=== PATIENT | female | born 1990 | race Caucasian/White ===

== ENCOUNTER 2023-12-17 22:43 | Emergency (ER) | payer OTHER, SELFPAY ==
[2023-12-17 22:50] VITALS: BP 115/68; PULSE 77; RESP 18; TEMP 37.1; O2SAT 100; BMI 32.9
--- NOTE | 2023-12-17 23:10 | ED.HA1 ---
HPI - Headache General Chief Complaint: Headache Stated Complaint: Headache Covid+ 12/03/23 Time Seen by Provider: 12/17/23 22:48 Source: patient Mode of arrival: walk-in Limitations: no limitations History of Present Illness HPI Narrative: Patient with history of intermittent headache presents with a headache that began a few weeks ago just before the patient tested positive for COVID. She described a heaviness with worsening when she moved her head that began around December 01. On December 03 she went to the urgent care and tested positive for COVID. She said that she was outside of the window to receive antiviral so she was given a prescription for Zofran, which which she said initially helped her headache but never made it completely go away. The patient went back to the urgent care about a week ago and was diagnosed with labyrinthitis after she had developed some dizziness that was worse with positional head change. She was prescribed daily prednisone which she has been taking and also a as needed prescription for meclizine, which she has only taken a couple of. She denied any recent fever or chills. She denied any vomiting or diarrhea. She denied any URI symptoms. She denied any injury to the head or neck. No meds taken this afternoon or evening for this complaint Related Data Home Medications Medication Instructions Recorded Confirmed aewtkqhzdy-tibkndcnjvqms-wiivrmxu 1 cap PO Q8H PRN headache 12/17/23 12/17/23 50 mg-300 mg-40 mg capsule meclizine 25 mg tablet 25 mg PO DAILY 12/17/23 12/17/23 Allergies Allergy/AdvReac Type Severity Reaction Status Date / Time No Known Drug Allergies Allergy Ver[facility]17[facility]23 22[facility] Social History Smoking status: Former smoker Exam Narrative Exam Narrative: Nurses notes and vital signs reviewed and patient is not hypoxic. Afebrile General: Well-appearing and in no apparent distress. Skin: Warm, dry, no pallor noted. No rash. Head: Normocephalic, atraumatic. Neck: Supple, non-tender. No meningismus. No cervical lymphadenopathy. Eye: Pupils are equal, round and EOMI. No scleral icterus. No nystagmus. Ears, Nose, Mouth, and Throat: TM are clear, no posterior oropharynx erythema or nasal mucosal hypertrophy, uvula is mid-line Oral mucosa is moist Cardiovascular: Regular Rate and Rhythm without murmur, gallop or rub. Respiratory: No accessory muscle use or respiratory distress. Lungs are clear to auscultation, no wheezing, rales or rhonchi Musculoskeletal: normal ROM GI: Abdomen is soft, non-distended. Normal bowel sounds. No tenderness to palpation. No rebound, guarding, or rigidity noted. Neurological: A&O x4. No cranial nerve dysfunction observed. No truncal ataxia. Moves all extremities. Sensation intact. Psychiatric: Cooperative and interactive. Normal mood and affect. Constitutional Vital Signs, click to edit/add: Last Vital Signs Temp 98.7 F 12/17/23 22:50 Pulse 77 12/17/23 22:50 Resp 18 12/17/23 22:50 BP 115/68 12/17/23 22:50 Pulse Ox 100 12/17/23 22:50 O2 Del Method Room Air 12/17/23 22:50 Course Vital Signs Vital signs: Vital Signs Temperature 98.7 F 12/17/23 22:50 Pulse Rate 77 12/17/23 22:50 Respiratory Rate 18 12/17/23 22:50 Blood Pressure 115/68 12/17/23 22:50 Pulse Oximetry 100 12/17/23 22:50 Oxygen Delivery Method Room Air 12/17/23 22:50 Temperature 98.7 F 12/17/23 22:50 Pulse Rate 77 12/17/23 22:50 Respiratory Rate 18 12/17/23 22:50 Blood Pressure 115/68 12/17/23 22:50 Pulse Oximetry 100 12/17/23 22:50 Oxygen Delivery Method Room Air 12/17/23 22:50 MDM - Headache MDM Narrative Medical decision making narrative: The patient does not have any neurological deficit on examination. HEENT exam is unremarkable and I do not see any evidence of EAC occlusion. No need for imaging at this time. Peripheral IV established. The patient ordered to receive normal saline IV fluid, IV Toradol, IV Zofran and IV Benadryl. Headache decreased from 8/10 to 6/10 on recheck. She was ordered to receive IV Solumerol, IV magnesium and IV phenergan. Patient's pain further decreased. She was discharged home with recommendation to see her PCP for follow up. ED return if she worsens. Discharge Plan Discharge Chief Complaint: Headache Clinical Impression: Headache Patient Disposition: Home, Self-Care Time of Disposition Decision: 01:00 Prescriptions / Home Meds: No Action djtilqqywp-tlkoyhuzfoaak-flpv 50-300-40 mg capsule 1 cap PO Q8H PRN (Reason: headache) meclizine 25 mg tablet 25 mg PO DAILY Instructions: Acute Headache (ED) Stand Alone Forms: Portal Instructions Referrals: Physician,Non-Staff, MD [Primary Care Provider] - 1 week
[2023-12-17] MEDS: 0.9 % SODIUM CHLORIDE 1,000 ML 1000 ML IV (23:41)
[2023-12-17] MEDS: DIPHENHYDRAMINE HCL 50 MG/ML (1ML) VIAL 25 MG IV (23:42)
[2023-12-17] MEDS: ONDANSETRON PF 4 MG/2 ML VIAL IV (23:42)
[2023-12-17] MEDS: KETOROLAC TROMETHAMINE 30 MG/ML VIAL IVP (23:42)
--- NOTE | 2023-12-17 23:52 | PC.NURSE ---
Patient has had headache since 12/01. Was prescribed migraine medication, but has not taken it as prescribed and states that it does not work. She has not taken any Tylenol or Ibuprofen for her headache either. She was also prescribed Meclizine and has not taken that as prescribed either. She was at the [place] ED just prior to coming here toncorey, but left after being in their waiting room for too long. She was Covid positive on 12/03 and did not have any sx apart from the headache.
[2023-12-18] MEDS: PROMETHAZINE HCL 12.5 MG in 0.9 % SODIUM CHLORIDE 50 ML 204 MG IV (00:53)
[2023-12-18] MEDS: MAGNESIUM SULFATE/D5W 1 GM/100 ML PIGGYBACK IV (00:53)
[2023-12-18] MEDS: METHYLPREDNISOLONE SOD SUCC PF 125 MG/2 ML VIAL IVP (00:54)
== END 2023-12-18 01:50 | disposition home or self-care (01) ==
PROVIDERS: Emergency Provider Emergency Medicine
DX: R51.9 Headache, unspecified (principal); Z87.891 Personal history of nicotine dependence; Z86.16 Personal history of COVID-19
CPT/HCPCS: 96365; 96368; 96375; 99284; J1200; J1885; J2250; J2405; J2930; J3475

== ENCOUNTER 2023-12-24 17:47 | Emergency (ER) | payer OTHER, SELFPAY ==
[2023-12-24] VITALS (15 sets, daily range): BP systolic 101–127; BP diastolic 59–83; PULSE 60–88; RESP 15–21; TEMP 37.1; O2SAT 94–100; BMI 33.8
--- OUTSIDE RECORDS SUMMARY | 2023-12-24 18:06 | XMS_ITS | CCD ---
Author Name Unknown Address [address] [facility] [address] [place], [place] [id number] Organization [facility] Care Team Providers Care Core Maker Helper Name Role Phone DR CHRISTIANO BRAVO Primary Care Unavailable DR DWIGHT TOBAR Attending Unavailable DR DWIGHT TOBAR Consulting Unavailable DR DWIGHT TOBAR Admitting Unavailable Bess Stoddard Unavailable Medications Current Medications Medication Drug Class(es) Dates Sig (Normalized) Sig (Original) amoxicillin 875 mg oral tablet (1 source) Penicillin-class Antibacterial Start: 11-08-2022 take 1 tablet by mouth three times daily Amoxicillin 875 MG 1 tablet Orally 3 times per day for 7 days Oct, Active dextromethorphan hydrobromide 1.5 mg/ml / pyrilamine maleate 1.5 mg/ml oral solution (1 source) Uncompetitive T-ltxxod-O-aspartate Receptor Antagonist, Sigma-1 Agonist Start: 11-08-2022 Walker DM 7.5-7.5 MG/5ML 10 ml Orally every 6-8 hours as needed for 8 days Oct, Active fluticasone propionate 0.05 mg/actuat metered dose nasal spray (1 source) Corticosteroid Start: 11-08-2022 take 1 spray(s) nasal route once daily Fluticasone Propionate 50 MCG/ACT 1 spray in each nostril Nasally Once a day for 30 day(s) Oct, Active Problems Problem Classification Problem Date Documented Date Episodic/Chronic Immunizations and screening for infectious disease (2 sources) Encounter for screening for human papillomavirus (HPV); Translations: [Contact with and (suspected) exposure to other viral communicable diseases] Onset: 01-26-2022 Episodic Other screening for suspected conditions (not mental disorders or infectious disease) (4 sources) Encounter for screening for malignant neoplasm of cervix; Translations: [ENC SCREENING MALIG NEOPLASM CERV] Onset: 01-25-2022 Episodic Other upper respiratory infections (1 source) Acute pharyngitis, unspecified Episodic Otitis media and related conditions (1 source) Otitis media, unspecified, bilateral Episodic Results Test Name Value Interpretation Reference Range Facil ity COVID + FLU Quick Testingon 11-08-2022 SARS-CoV-2 (COVID-19) RNA VIVEK+probe Ql (Unsp spec) Negative [facility] Other COVID + FLU Quick Testing Negative [facility] Other Quick Strepon 11-08-2022 S. pyogenes Org specific cx Ql (Throat) Negative [facility] Other Quick Strep [facility] Other PAP ACOG PANEL 2: 30 to 65on 02-08-2022 . . Normal [facility] Comment on above: Result Comment: Performed at: WB Performed By: #### [id number] #### [facility] [address] [address] [address] Yves Diop Age Gdln ACOG Testing 30-65 Normal [facility] Comment on above: Performed By: #### [id number] #### [facility] [address] [address] [address] Yves Diop DIAGNOSIS: Comment Normal [facility] Comment on above: Result Comment: NEGATIVE FOR INTRAEPITHE LIAL LESION OR MALIGNANCY. Performed at: WB Performed By: #### [id number] #### [facility] [address] [address] [address] Yves Diop HPV Aptima Negative Normal Negative [facility] Comment on above: Result Comment: This nucleic acid amplif ication test detects fourteen high-risk HPV types (16,18,31,33,35,39,45,51,52,56,58,59,66,68) without differentiation. Performed at: =G Performed By: #### [id number] #### [facility] [address] [address] [address] Yves Diop Methodology: Comment [facility] Comment on above: Result Comment: This liquid based ThinPr ep(R) pap test was screened with the use of an image guided system. Performed at: WB Performed By: #### [id number] #### [facility] [address] [place] [address] Dr. Yves Diop Note: Comment [facility] Comment on above: Result Comment: The Pap smear is a scree josé miguel test designed to aid in the detection of premalignant and malignant conditions of the uterine cervix. It is not a diagnostic procedure and should not be used as the sole means of detecting cervical cancer. Both false-positive and false-negative reports do occur. . Performed at: WB Performed By: #### [id number] #### [facility] [address] [place] [address] Dr. Yves Diop Performed by: Comment Normal [facility] Comment on above: Result Comment: Charo Robert chnologliya (ASCP) Performed at: WB Performed By: #### [id number] #### [facility] [address] [place] [address] Dr. Yves Diop Specimen adequacy: Comment [facility] Comment on above: Result Comment: Satisfactory for evaluat ion. Endocervical and/or squamous metaplastic cells (endocervical component) are present. Performed at: WB Performed By: #### [id number] #### [facility] [address] [place] [address] Dr. Yves Diop PAP ACOG PANEL 2: 30 to 65on 01-31-2022 . . Normal [facility] Comment on above: Result Comment: Performed at: WB Performed By: #### [id number] #### [facility] [address] [place] [address] Dr. Yves Diop Age Gdln ACOG Testing 30-65 [facility] Comment on above: Performed By: #### [id number] #### [facility] [address] [place] [address] Dr. Yves Diop DIAGNOSIS: Comment [facility] Comment on above: Result Comment: NEGATIVE FOR INTRAEPITHE LIAL LESION OR MALIGNANCY. Performed at: WB Performed By: #### [id number] #### [facility] [address] [place] [address] Dr. Yves Diop HPV Aptima Negative Normal Negative [facility] Comment on above: Result Comment: This nucleic acid amplif ication test detects fourteen high-risk HPV types (16,18,31,33,35,39,45,51,52,56,58,59,66,68) without differentiation. Performed at: =G Performed By: #### [id number] #### [facility] [address] [place] [address] Dr. Yves Diop Methodology: Comment Normal [facility] Comment on above: Result Comment: This liquid based ThinPr ep(R) pap test was screened with the use of an image guided system. Performed at: WB Performed By: #### [id number] #### [facility] [address] [place] [address] Dr. Yves Diop Note: Comment Normal [facility] Comment on above: Result Comment: The Pap smear is a scree josé miguel test designed to aid in the detection of premalignant and malignant conditions of the uterine cervix. It is not a diagnostic procedure and should not be used as the sole means of detecting cervical cancer. Both false-positive and false-negative reports do occur. . Performed at: WB Performed By: #### [id number] #### [facility] [address] [place] [address] Dr. Yves Diop Performed by: Comment Normal [facility] Comment on above: Result Comment: Charo Robert chnologliya (ASCP) Performed at: WB Performed By: #### [id number] #### [facility] [address] [place] [address] Dr. Yves Diop Specimen adequacy: Comment Normal [facility] Comment on above: Result Comment: Satisfactory for evaluat ion. Endocervical and/or squamous metaplastic cells (endocervical component) are present. Performed at: WB Performed By: #### [id number] #### [facility] [address] [place] [address] Dr. Yves Diop Vital Signs Date Time Vital Sign Value Performing Clinician Facility 11-08-2022 10:00-0500 Body height 157.48 cm Bess Arlyn Other [facility] Other 11-08-2022 10:00-0500 Body mass index (BMI) [Ratio] 36.58 kg/m2 Bess Stoddard Other [facility] Other 11-08-2022 10:00-0500 Body temperature 98 [degF] Bess Kwokault Other [facility] Other 11-08-2022 10:00-0500 Body weight 90.72 kg Bess Kwokault Other [facility] Other 11-08-2022 10:00-0500 Respiratory rate 18 /min Bess Arlyn Other [facility] Other 11-08-2022 10:00-0500 SaO2% (BldA) [Mass fraction] 99 % Bess Kwokault Other [facility] Other Encounters Encounter Date Encounter Type Care Provider Facility Start: 11-08-2022 End: 11-08-2022 ambulatory Bess Stoddard Other [facility] Other Start: 11-08-2022 Office outpatient ne w 20 minutes Bess Stoddard [facility] Start: 01-25-2022 End: 01-25-[address] CHRISTIANO BRAVO Facility: Payers Date Payer Category Payer Unknown [id number] 1959 Unknown [id number] [employer] [facility] [id number] Social History Date Type Detail Facility Sex Assigned At [facility] Other Evaluation note 11-08-2022 Note Date & Type Note Facility 11-08-2022 Evaluation note Encounter Date Diagnosis Assessment Notes Oct, Contact with and (suspected) exposure to other viral communicable diseases (ICD-10 - Z20.828) Oct, Bilateral acute otitis media (ICD-10 - H66.93) Ear infections are often a secondary infection caused from an URI, the flu or allergies. Take medication as directed. Complete all doses, even if you feel better. Tylenol or ibuprofen can help with pain. Warm pack to area for comfort helps as well. Follow up with primary care provider if no improvement of symptoms. Oct, Sore throat (ICD-10 - J02.9) [place] [facility] Other History general Narrative - Reported Note Date & Type Note Facility History general Narrative - Reported Type Surgical History X 2 Surgical History tubal ligation [facility] Other Summary Purpose Family History No Family History Records Found Advance Directives No Advanced Directives Records Found Additional Source Comments INFORMATION SOURCE (unrecogn ized section and content) DATE CREATED AUTHOR 02/09/2022 [facility] REASON FOR VISIT (unrecogniz ed section and content) headache/head pressure, sore throat, runny nose FOR RECORDS PERTAINING TO PATIENTS WHO ARE OR HAVE BEEN ENROLLED IN A CHEMICAL DEPENDENCY/SUBSTANCEABUSE PROGRAM, SOME INFORMATION MAY BE OMITTED. This clinical summary was aggregated from multiple sources. Caution should be exercised in using it in the provision of clinical care. This summary normalizes information from multiple sources, and as a consequence, information in this document may materially change the coding, format and clinical context of patient data. In addition, data may be omitted in some cases. CLINICAL DECISIONS SHOULD BE BASED ON THE PRIMARY CLINICAL RECORDS. [employer] provides no warranty or guarantee of the accuracy or completeness of information in this document.
--- NOTE | 2023-12-24 18:13 | ECG_ITS ---
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
--- NOTE | 2023-12-24 18:13 | ED.GENADUL1 ---
HPI - General Adult General Chief complaint: Headache Stated complaint: Headache, Syncope Time Seen by Provider: 12/24/23 17:53 Source: patient Mode of arrival: walk-in Limitations: no limitations History of Present Illness HPI narrative: Patient is a 32-year-old female who presents to the emergency department for continued headache. Patient was seen in this emergency department last week. She developed headaches at the beginning of this month, she then developed COVID And her headaches were thought to be due to COVID infection. She was also seen at urgent care and diagnosed with labyrinthitis. When she was seen in this emergency room last week, she was treated for headache with IV fluids and medications. She saw her PCP this past week who gave her a nasal spray and medication for home to help with the headaches. She states she had improvement until the last 3 days when she had a return of increasing headache located over the bilateral occiput. She states today she had a syncopal episode, she called her PCP to be reevaluated and was instructed to come to the ER. She has no loss of vision or double vision. She has no peripheral paresthesias or neck pain. She has not had any fevers, chills, cough, hemoptysis, chest pain, shortness of breath. She has not had any abdominal pain, she is not on control, she has no concern for . Related Data Home Medications Medication Instructions Recorded Confirmed [id number] 1 cap PO Q8H PRN headache 12/17/23 12/24/23 50 mg-300 mg-40 mg capsule meclizine 25 mg tablet 12.5 mg PO TID 12/17/23 12/24/23 metaxalone 800 mg tablet 800 mg PO TID PRN headaches 12/24/23 12/24/23 Previous Rx's Medication Instructions Recorded diphenhydramine HCl 25 mg capsule 25 mg PO Q8H PRN headache #20 caps 12/24/23 (Benadryl) ketorolac 10 mg tablet 10 mg PO TID PRN pain #10 tabs 12/24/23 methocarbamol 750 mg tablet 750 mg PO TID PRN pain #20 tabs 12/24/23 metoclopramide HCl 10 mg tablet 10 mg PO Q6H PRN nausea and 12/24/23 (Reglan) vomiting #12 tabs Allergies Allergy/AdvReac Type Severity Reaction Status Date / Time No Known Drug Allergies Allergy Verified 12/24/23 17:53 Review of Systems ROS Constitutional Denies: fever or chills Eyes Reports: blurry vision Ears, nose, mouth, and throat Denies: throat pain or nasal congestion Cardiovascular Denies: chest pain or palpitations Respiratory Denies: shortness of breath, cough or coughing up blood Gastrointestinal Reports: nausea; Denies: vomiting or diarrhea Genitourinary Denies: painful urination Musculoskeletal Denies: back pain, neck pain, extremity pain or extremity swelling Integumentary/Breast Denies: rash Neurological Reports: headache and dizziness; Denies: numbness in extremities or weakness in extremities Endocrine Denies: excessive urination Hematologic/Lymphatic Denies: easy bruising or easy bleeding PFSH PFSH Social History Smoking status: Former smoker Exam Narrative Exam Narrative: Gen.: Awake, alert, in no distress Head: Normocephalic, Mild tenderness of the occiput. No Cal[place]xto sign or raccoon eyes ENT: Moist mucous membranes, C-spine nontender with full range of motion Respiratory: No respiratory distress, lungs clear bilaterally Cardio: Regular rate and rhythm Gastrointestinal: Abdomen is soft, nondistended and nontender to palpation Extremities: Moves extremities equally, No edema Psych: Normal mood and affect Neuro: No focal neuro deficit Skin: Warm, dry, intact Constitutional Vital Signs, click to edit/add: Last Vital Signs Temp 98.7 F 12/24/23 17:53 Pulse 73 12/24/23 20:50 Resp 21 12/24/23 20:50 BP 109/63 12/24/23 20:30 Pulse Ox 95 12/24/23 20:50 O2 Del Method Room Air 12/24/23 17:53 Course Vital Signs Vital signs: Vital Signs Temperature 98.7 F 12/24/23 17:53 Pulse Rate 88 12/24/23 17:53 Respiratory Rate 18 12/24/23 17:53 Blood Pressure 127/83 12/24/23 17:53 Pulse Oximetry 97 12/24/23 17:53 Oxygen Delivery Method Room Air 12/24/23 17:53 Temperature 98.7 F 12/24/23 17:53 Pulse Rate 73 12/24/23 20:50 Respiratory Rate 21 12/24/23 20:50 Blood Pressure 109/63 12/24/23 20:30 Pulse Oximetry 95 12/24/23 20:50 Oxygen Delivery Method Room Air 12/24/23 17:53 Medical Decision Making MDM Narrative Medical decision making narrative: PERC score of 0. Patient with no tachycardia, hypoxia. She has no history of DVT or PE, she takes no control or exogenous estrogen. She has not had any unilateral extremity swelling or hemoptysis. CT of the brain, lab studies reviewed and noted. These are grossly unremarkable. Patient is discharged to follow-up with neurology. She was treated with IV fluids and medications in the ER. She is resting comfortably on reevaluation with stable vital signs. She has no altered mental status. Follow-up with PCP and neurology and return to the ER if symptoms change or worsen Medical Records Medical records reviewed: Yes I reviewed the patient's medical records Lab Data Lab results reviewed: Yes I reviewed the patient's lab results Labs: Lab Results 12/24/23 12/24/23 Range/Units 18:18 19:30 WBC 10.5 (4.0-11.0) 10^3/uL RBC 4.22 (4.20-5.40) 10^6/uL Hgb 11.9 L (12.0-16.0) g/dL Hct 37.0 (36.0-48.0) % MCV 87.7 (81.0-99.0) fL MCH 28.2 (26.7-34.0) pg MCHC 32.2 (29.9-35.2) g/dL RDW 13.7 (11.0-15.0) % Plt Count 342 (150-450) 10^3/uL MPV 10.5 (9.5-13.5) fL Neut % (Auto) 82.2 H (43.0-75.0) % Lymph % (Auto) 10.3 L (20.5-60.0) % [place] % (Auto) 6.5 (1.7-12.0) % Eos % (Auto) 0.1 L (0.9-7.0) % Baso % (Auto) 0.3 (0.2-2.0) % Neut # (Auto) 8.7 H (1.4-6.5) 10^3/uL Lymph # (Auto) 1.1 L (1.2-3.8) 10^3/uL [place] # (Auto) 0.7 (0.3-0.8) 10^3/uL Eos # (Auto) 0.0 (0.0-0.7) 10^3/uL Baso # (Auto) 0.0 (0.0-0.1) 10^3/uL Abs Immat Gran (auto) 0.06 H (0.00-0.03) 10^3/uL Imm/Tot Granulo (auto) 0.6 H (0.0-0.5) % ESR 9 (<=20) mm/hr Sodium 143 (136-145) mmol/L Potassium 3.7 (3.5-5.1) mmol/L Chloride 105 (98-107) mmol/L Carbon Dioxide 31.4 (21.0-32.0) mmol/L Anion Gap 10.3 BUN 14.0 (7.0-18.0) mg/dL Creatinine 0.86 (0.55-1.02) mg/dL Est GFR ( Amer) >60 (>=60) Est GFR (Non-Af Amer) >60 (>=60) BUN/Creatinine Ratio 16.3 Glucose 87 (74-106) mg/dL Lactate 0.7 (0.4-2.0) mmol/L Calcium 9.0 (8.5-10.1) mg/dL Magnesium 2.2 (1.8-2.4) mg/dL Total Bilirubin 0.3 (0.2-1.0) mg/dL AST 7 L (15-37) U/L ALT 14 (14-59) U/L Alkaline Phosphatase 55 (46-116) U/L Troponin I High Sens <4.0 L (4.0-51.3) pg/mL C-Reactive Protein <0.50 (<=0.50) mg/dL Total Protein 7.4 (6.4-8.2) g/dL Albumin 3.9 (3.4-5.0) g/dL Globulin 3.5 g/dL Albumin/Globulin Ratio 1.1 TSH 0.558 (0.358-3.740) uIU/mL Serum HCG, Qual Negative (NEGATIVE) Urine Color Lt. yellow (YELLOW) Urine Clarity Clear (CLEAR) Urine pH 6.5 (5.0-9.0) Ur Specific [place] 1.020 (1.005-1.025) Urine Protein Negative (NEG/TRACE) mg/dL Urine Glucose (UA) Negative (NEGATIVE) mg/dL Urine Ketones Negative (NEGATIVE) mg/dL Urine Occult Blood Negative (NEGATIVE) Urine Nitrite Negative (NEGATIVE) Urine Bilirubin Negative (NEGATIVE) Urine Urobilinogen 0.2 (0.2-1.0) EU/dL Ur Leukocyte Esterase Negative (NEGATIVE) Imaging Data CT scan - head: Attestation: I have reviewed the pertinent imaging results. Discharge Plan Discharge Chief Complaint: Headache Clinical Impression: Headache, Syncope Patient Disposition: Home, Self-Care Time of Disposition Decision: 20:42 Condition: Good Prescriptions / Home Meds: New ketorolac 10 mg tablet 10 mg PO TID PRN (Reason: pain) Qty: 10 0RF metoclopramide HCl [Reglan] 10 mg tablet 10 mg PO Q6H PRN (Reason: nausea and vomiting) Qty: 12 0RF diphenhydramine HCl [Benadryl] 25 mg capsule 25 mg PO Q8H PRN (Reason: headache) Qty: 20 0RF Rx Instructions: Take with reglan methocarbamol 750 mg tablet 750 mg PO TID PRN (Reason: pain) Qty: 20 0RF No Action metaxalone 800 mg tablet 800 mg PO TID PRN (Reason: headaches) [id number]-uywnqnxfbletf-tigx 50-300-40 mg capsule 1 cap PO Q8H PRN (Reason: headache) meclizine 25 mg tablet 12.5 mg PO TID Instructions: Syncope (ED), Acute Headache (ED) Additional Instructions: Do not take methocarbamol and metaxalone at the same time Stand Alone Forms: Portal Instructions Referrals: CLAY GARCIA [Physician] - 1 week CHRISTIANO BRAVO [Primary Care Provider] - 1 week Discharge Date/Time: 12/24/23 20:54
--- NOTE | 2023-12-24 18:32 | CT_ITS ---
The [address] [address] Patient Name: JM ADKINS MRN: [id number] date: 1990 Sex: F Assigned Patient Location: ER Current Patient Location: Accession/Order Number: [id number] Exam Date: 12/24/2023 18:30 Report Date: 12/24/2023 19:17 At the request of: ANALI BLACKWELL Procedure: CT head/brain wo con EXAM: CT head/brain wo con HISTORY: Headache, syncope left side head pain status post fall COMPARISON: None. TECHNIQUE: Noncontrast CT was obtained through the head. Dose reduction techniques were achieved by using automated exposure control and/or adjustment of mA and/or kV according to patient size and/or use of iterative reconstruction technique. FINDINGS: The ventricles, sulci, and remaining CSF containing spaces maintain age-appropriate volume and symmetry. No herniation or hydrocephalus. The chairez matter/white matter differentiation is maintained throughout. No CT evidence of contemporary infarction. No acute intracranial hemorrhage or parenchymal mass. The calvarium and skull base are intact. The pneumatized portions of the skull are clear. CT/CT head/brain wo con IMPRESSION: 1. No acute intracranial abnormality. Electronically authenticated by: DRE OKEEFE Date: 12/24/2023 19:17
[2023-12-24] MEDS: 0.9 % SODIUM CHLORIDE 1,000 ML 999 ML IV (18:36)
[2023-12-24] MEDS: DEXAMETHASONE SOD PHOS 10 MG/ML VIAL IV (18:36)
[2023-12-24] MEDS: DIPHENHYDRAMINE HCL 50 MG/ML (1ML) VIAL 25 MG IV (18:38)
[2023-12-24] MEDS: METOCLOPRAMIDE HCL 10 MG/2 ML VIAL IVP (18:41)
[2023-12-24 18:43] LABS: Basophils Percent Auto 0.3 % (0.2-2.0); Eosinophils Percent Auto 0.1 % (0.9-7.0); Hemoglobin 11.9 g/dL (12.0-16.0); Immature Granulocytes Abs Auto 0.06 10^3/uL (0.00-0.03); Immature Granulocytes Pct Auto 0.6 % (0.0-0.5); Lymphocytes Absolute Auto 1.1 10^3/uL (1.2-3.8); Lymphocytes Percent Auto 10.3 % (20.5-60.0); Mean Corpuscular HGB Conc 32.2 g/dL (29.9-35.2); Mean Corpuscular Hemoglobin 28.2 pg (26.7-34.0); Mean Corpuscular Volume 87.7 fL (81.0-99.0); Mean Platelet Volume 10.5 fL (9.5-13.5); Monocytes Absolute Auto 0.7 10^3/uL (0.3-0.8); Monocytes Percent Auto 6.5 % (1.7-12.0); Neutrophils Absolute Auto 8.7 10^3/uL (1.4-6.5); Neutrophils Percent Auto 82.2 % (43.0-75.0); Platelet Count 342 10^3/uL (150-450); Red Blood Count 4.22 10^6/uL (4.20-5.40); Red Cell Distribution Width 13.7 % (11.0-15.0); White Blood Count 10.5 10^3/uL (4.0-11.0)
[2023-12-24 18:51] LABS: Erythrocyte Sedimentation Rate 9 mm/hr (<=20)
[2023-12-24 19:00] LABS: HCG Qualitative NEGATIVE (NEGATIVE)
[2023-12-24 19:03] LABS: Lactate/Lactic Acid 0.7 mmol/L (0.4-2.0)
[2023-12-24 19:10] LABS: Alanine Aminotransferase 14 U/L (14-59); Albumin Globulin Ratio 1.1; Albumin Level 3.9 g/dL (3.4-5.0); Alkaline Phosphatase 55 U/L (46-116); Anion Gap 10.3; Aspartate Amino Transferase 7 U/L (15-37); BUN Creatinine Ratio 16.3; Bilirubin Total 0.3 mg/dL (0.2-1.0); Carbon Dioxide 31.4 mmol/L (21.0-32.0); Chloride 105 mmol/L (98-107); Estimated GFR (African America >60 (>=60); Estimated GFR (Non-African Ame >60 (>=60); Globulin 3.5 g/dL; Glucose 87 mg/dL (74-106); Potassium 3.7 mmol/L (3.5-5.1); Sodium 143 mmol/L (136-145); Total Protein 7.4 g/dL (6.4-8.2)
[2023-12-24 19:14] LABS: C Reactive Protein <0.50 mg/dL (<=0.50); Magnesium 2.2 mg/dL (1.8-2.4); Thyroid Stimulating Hormone 0.558 uIU/mL (0.358-3.740); Troponin I High Sensitivity <4.0 pg/mL (4.0-51.3)
[2023-12-24 19:38] LABS: Bilirubin Urine NEGATIVE (NEGATIVE); Blood Urine NEGATIVE (NEGATIVE); Clarity Urine CLEAR (CLEAR); Color Urine LT. YELLOW (YELLOW); Glucose Urine UA NEGATIVE (NEGATIVE); Ketones Urine NEGATIVE (NEGATIVE); Leukocyte Esterase Urine NEGATIVE (NEGATIVE); Nitrite Urine NEGATIVE (NEGATIVE); Protein Urine NEGATIVE (NEG/TRACE); Urobilinogen Urine 0.2 EU/dL (0.2-1.0); pH Urine 6.5 (5.0-9.0)
[2023-12-24 19:40] LABS: Urine Microscopic Indicated NO
== END 2023-12-24 20:54 | disposition home or self-care (01) ==
PROVIDERS: Physician Assistant; Emergency Provider Internal Medicine; PCP Family Medicine
DX: R51.9 Headache, unspecified (principal); R55 Syncope and collapse; Z86.16 Personal history of COVID-19; Z87.891 Personal history of nicotine dependence
CPT/HCPCS: 36415; 70450; 80053; 81003; 83605; 83735; 84443; 84484; 84703; 85025; 85652; 86140; 93005; 96374; 96375; 99285; J1100